=== PATIENT | female | born 1985 | race Caucasian/White ===

== ENCOUNTER 2020-10-31 12:55 | Outpatient (REF) | payer OTHER, SELFPAY ==
--- NOTE | ~2020-10-31 | MM_ITS ---
EXAMINATION: MM DIAGNOSTIC DIGITAL BREAST TOMOSYNTHESIS, BILATERAL US DIAGNOSTIC ULTRASOUND BREAST, BILATERAL CLINICAL INFORMATION: 35-year-old female with chronic bilateral milky green nipple discharge. No bloody discharge. No palpable mass. Patient notes elevated prolactin on recent laboratories. Family history breast cancer, maternal grandmother. The lifetime risk of breast cancer based on the Tyrer-Cuzick Model is 15%. COMPARISON: Mammography: 04/17/2019, targeted left breast ultrasound 04/17/2019. TECHNIQUE: Digital breast tomosynthesis is performed in both the craniocaudal and mediolateral oblique views along with computer-aided detection (CAD). Synthesized 2D images are generated from the tomosynthesis. Ultrasound bilateral breasts is performed, targeted to the retroareolar and circumferential periareolar regions. Grayscale imaging and color Doppler are performed without and with harmonics. FINDINGS: The breasts are heterogeneously dense, which may obscure small masses (ACR BI-RADS breast composition Category c). There are no significant masses, abnormal calcifications, or other abnormalities. No focal duct ectasia appreciated. No adenopathy. Skin contours are smooth. No significant changes. Ultrasound right breast demonstrates no cystic or solid mass or architectural abnormality. No focal duct ectasia. No skin thickening or edema tracking in soft tissue planes. No hyperemia. Ultrasound left breast demonstrates scattered subcentimeter cysts similar to the prior ultrasound exam 04/17/2019. Largest cyst is 0.8 cm with fine internal avascular septation, similar to prior study. There is no solid mass or duct ectasia. No skin thickening or edema tracking in soft tissue planes. No hyperemia. Results are discussed with the patient at time of visit. MM/MM tomosynthesis diagnostic BI IMPRESSION: 1. No mammographic evidence of malignancy. No significant changes prior exam 2019. 2. Unremarkable right breast ultrasound. Incidental small subcentimeter cysts left breast similar to prior exam 2019. ASSESSMENT: BI-RADS 2: Benign RECOMMENDATION: 1. Patient's chronic bilateral nipple discharge should be managed based on the clinical impression and recent laboratories. 2. Otherwise, routine annual screening mammography, beginning age 40, or earlier as clinical risk factors warrant. This patient's information was entered into a reminder system with a target due date for their next mammogram.
== END 2020-10-31 12:56 | disposition home or self-care (01) ==
LOC: HO.MAMMO 12:55
PROVIDERS: PCP Registered Nurse; Visit Provider Registered Nurse
DX: N64.52 Nipple discharge (principal)
CPT/HCPCS: 76642; 77062; 77066